=== PATIENT | male | born 1975 | race Caucasian/White ===

== ENCOUNTER 2018-04-15 02:05 | Emergency (ER) | payer SELFPAY ==
[~2018-04-15] VITALS: Ht 177.8 cm; Wt 81.0 kg
[2018-04-15 02:06] VITALS: BP 147/68; PULSE 107; RESP 20; TEMP 98.7; O2SAT 98
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
== END 2018-04-15 03:40 | disposition home or self-care (01) ==
LOC: NEPD 02:05
DX: S01.511A Laceration without foreign body of lip, initial encounter (principal); S01.01XA Laceration without foreign body of scalp, initial encounter; Y09 Assault by unspecified means
CPT/HCPCS: 12001; 12011